=== PATIENT | male | born 1935 | race Caucasian/White ===

== ENCOUNTER → 2023-11-14 | Outpatient (REF) ==
[2023-11-14 09:43] LABS: HEMATOCRIT 31.3 % (42.0-52.0); MEAN CORPUSCULAR HEMOGLOBIN 31.5 pg (27.0-33.0); MEAN CORPUSCULAR HGB CONC 28.8 g/dl (32.0-36.5); MEAN CORPUSCULAR VOLUME 109.4 fl (80.0-96.0); PLATELET COUNT, AUTOMATED 217 10^3/uL (150-450); RED BLOOD COUNT 2.86 10^6/uL (4.30-6.10); WHITE BLOOD COUNT 6.3 10^3/uL (4.0-10.0)
[2023-11-14 10:10] LABS: CALCIUM LEVEL 8.5 MG/DL (8.3-10.6); CHOLESTEROL RISK RATIO 2.28 (<5); CREATININE FOR GFR 2.07 MG/DL (0.70-1.30); GLOMERULAR FILTRATION RATE 32.4 (>35); HDL CHOLESTEROL 34.1 MG/DL (>40); LDL CHOLESTEROL 25.3 MG/DL (<100); NON-HDL-C 43.9 MG/DL; POTASSIUM SERUM 4.7 MMOL/L (3.5-5.1); PTH INTACT 78.9 PG/ML (18.5-88.0)
[2023-11-14 10:12] LABS: TOTAL 25(OH) VITAMIN D 22.9 NG/ML (20.0-100.0)
[2023-11-14 10:14] LABS: HEMOGLOBIN A1c 6.3 % (4.0-6.0)
== END ==
LOC: SKLAB4 10:22
PROVIDERS: ATTEND Nurse Practitioner Family
DX: N18.9 Chronic kidney disease, unspecified (principal); E78.5 Hyperlipidemia, unspecified; E11.22 Type 2 diabetes mellitus with diabetic chronic kidney disease

== ENCOUNTER → 2023-11-21 | Outpatient (REF) ==
[2023-11-21 08:09] LABS: HEMATOCRIT 34.7 % (42.0-52.0); HEMOGLOBIN 9.8 g/dl (13.5-17.5); MEAN CORPUSCULAR HEMOGLOBIN 30.6 pg (27.0-33.0); MEAN CORPUSCULAR HGB CONC 28.2 g/dl (32.0-36.5); MEAN CORPUSCULAR VOLUME 108.4 fl (80.0-96.0); PLATELET COUNT, AUTOMATED 329 10^3/uL (150-450); WHITE BLOOD COUNT 7.8 10^3/uL (4.0-10.0)
[2023-11-21 08:42] LABS: CALCIUM LEVEL 8.4 MG/DL (8.3-10.6); CREATININE FOR GFR 2.12 MG/DL (0.70-1.30); GLOMERULAR FILTRATION RATE 31.5 (>35); POTASSIUM SERUM 5.4 MMOL/L (3.5-5.1)
== END ==
LOC: SKLAB4 11:15
PROVIDERS: ATTEND Nurse Practitioner Family
DX: I12.9 Hypertensive chronic kidney disease with stage 1 through stage 4 chronic kidney disease, or unspecified chronic kidney disease (principal); N18.9 Chronic kidney disease, unspecified; E11.22 Type 2 diabetes mellitus with diabetic chronic kidney disease

== ENCOUNTER → 2023-11-28 | Outpatient (REF) ==
[2023-11-28 07:09] LABS: MEAN CORPUSCULAR HGB CONC 28.1 g/dl (32.0-36.5); MEAN CORPUSCULAR VOLUME 106.7 fl (80.0-96.0); PLATELET COUNT, AUTOMATED 365 10^3/uL (150-450); WHITE BLOOD COUNT 5.4 10^3/uL (4.0-10.0)
[2023-11-28 07:26] LABS: CALCIUM LEVEL 8.6 MG/DL (8.3-10.6); CREATININE FOR GFR 2.27 MG/DL (0.70-1.30); GLOMERULAR FILTRATION RATE 29.1 (>35); POTASSIUM SERUM 4.4 MMOL/L (3.5-5.1)
[2023-11-28 07:29] LABS: FERRITIN 122.5 NG/ML (10.5-307.3)
== END ==
LOC: SKLAB4 15:47
PROVIDERS: ATTEND Nurse Practitioner Family
DX: N18.9 Chronic kidney disease, unspecified (principal); E11.22 Type 2 diabetes mellitus with diabetic chronic kidney disease; I12.9 Hypertensive chronic kidney disease with stage 1 through stage 4 chronic kidney disease, or unspecified chronic kidney disease

== ENCOUNTER → 2023-12-04 | Outpatient (REF) ==
[2023-12-04 06:48] LABS: CALCIUM LEVEL 8.4 MG/DL (8.3-10.6); CREATININE FOR GFR 2.11 MG/DL (0.70-1.30); GLOMERULAR FILTRATION RATE 31.7 (>35)
== END ==
LOC: SKLAB4 07:00
PROVIDERS: ATTEND Nurse Practitioner Family
DX: N18.9 Chronic kidney disease, unspecified (principal)

== ENCOUNTER → 2023-12-11 | Outpatient (REF) ==
[2023-12-11 08:48] LABS: CALCIUM LEVEL 8.4 MG/DL (8.3-10.6); CREATININE FOR GFR 2.02 MG/DL (0.70-1.30); GLOMERULAR FILTRATION RATE 33.4 (>35); POTASSIUM SERUM 4.2 MMOL/L (3.5-5.1)
== END ==
LOC: SKLAB4 09:00
PROVIDERS: ATTEND Nurse Practitioner Family
DX: I50.9 Heart failure, unspecified (principal)

== ENCOUNTER → 2023-12-12 | Outpatient (REF) | LOC: SKLAB4 11:10 | PROVIDERS: ATTEND Nurse Practitioner Family | DX: Z53.8 Procedure and treatment not carried out for other reasons (principal) ==

== ENCOUNTER → 2023-12-12 | Outpatient (REF) | LOC: SKLAB4 11:14 | PROVIDERS: ATTEND Nurse Practitioner Family | DX: I51.7 Cardiomegaly (principal); I70.0 Atherosclerosis of aorta; J90 Pleural effusion, not elsewhere classified ==

== ENCOUNTER → 2023-12-13 | Outpatient (REF) | payer MEDICARE, OTHER | LOC: M RAD 09:19 → EDSTATUS 10:06 | PROVIDERS: ATTEND Internal Medicine | DX: R52 Pain, unspecified (principal) ==

== ENCOUNTER → 2023-12-13 | Outpatient (REF) ==
[2023-12-13 13:44] LABS: HEMATOCRIT 31.9 % (42.0-52.0); MEAN CORPUSCULAR HEMOGLOBIN 29.5 pg (27.0-33.0); MEAN CORPUSCULAR HGB CONC 28.2 g/dl (32.0-36.5); MEAN CORPUSCULAR VOLUME 104.6 fl (80.0-96.0); PLATELET COUNT, AUTOMATED 356 10^3/uL (150-450); RED BLOOD COUNT 3.05 10^6/uL (4.30-6.10); WHITE BLOOD COUNT 6.6 10^3/uL (4.0-10.0)
[2023-12-13 14:07] LABS: ALBUMIN 2.5 G/DL (3.2-5.2); ALKALINE PHOSPHATASE 174 U/L (46-116); ALT/SGPT < 9 U/L (7.0-40); AST/SGOT 36 U/L (<34); BLOOD UREA NITROGEN 49 MG/DL (9-23); CALCIUM LEVEL 8.3 MG/DL (8.3-10.6); CARBON DIOXIDE LEVEL 27 MMOL/L (20-31); CHLORIDE LEVEL 104 MMOL/L (98-107); CREATININE FOR GFR 2.13 MG/DL (0.70-1.30); GLOMERULAR FILTRATION RATE 31.4 (>35); GLUCOSE, FASTING 169 MG/DL (74-106); POTASSIUM SERUM 4.5 MMOL/L (3.5-5.1); SODIUM LEVEL 143 MMOL/L (136-145); TOTAL PROTEIN 6.3 G/DL (5.7-8.2)
== END ==
LOC: SKLAB4 07:00
PROVIDERS: ATTEND Nurse Practitioner Family
DX: N18.9 Chronic kidney disease, unspecified (principal); D63.1 Anemia in chronic kidney disease

== ENCOUNTER → 2023-12-18 | Outpatient (REF) ==
[2023-12-18 08:25] LABS: CALCIUM LEVEL 8.8 MG/DL (8.3-10.6); CREATININE FOR GFR 2.44 MG/DL (0.70-1.30); GLOMERULAR FILTRATION RATE 26.8 (>35); POTASSIUM SERUM 4.7 MMOL/L (3.5-5.1)
== END ==
LOC: SKLAB4 07:00
PROVIDERS: ATTEND Nurse Practitioner Family
DX: N18.4 Chronic kidney disease, stage 4 (severe) (principal)

== ENCOUNTER → 2023-12-18 | Outpatient (REF) | LOC: SKLAB4 13:31 | PROVIDERS: ATTEND Nurse Practitioner Family | DX: R06.02 Shortness of breath (principal) ==

== ENCOUNTER → 2023-12-26 | Outpatient (REF) | payer MEDICARE, OTHER | LOC: M RAD 13:27 → EDSTATUS 12-27 08:39 | PROVIDERS: ATTEND Internal Medicine | DX: R09.02 Hypoxemia (principal) ==

== ENCOUNTER → 2023-12-26 | Outpatient (REF) | payer MEDICARE, OTHER ==
[2023-12-26 13:10] LABS: BASO # 0.1 10^3/uL (0.0-0.2); BASO % 0.9 % (0.0-1.0); EOS # 0.1 10^3/uL (0.0-0.5); EOS % 1.7 % (0.0-3.0); HEMATOCRIT 30.5 % (42.0-52.0); HEMOGLOBIN 8.8 g/dl (13.5-17.5); LYMPH % 18.1 % (24.0-44.0); MEAN CORPUSCULAR HEMOGLOBIN 28.9 pg (27.0-33.0); MEAN CORPUSCULAR HGB CONC 28.9 g/dl (32.0-36.5); MONO # 1.1 10^3/uL (0.0-0.8); MONO % 21.2 % (2.0-8.0); NEUTROPHILS # 3.1 10^3/uL (1.5-8.5); NEUTROPHILS % 57.5 % (36.0-66.0); PLATELET COUNT, AUTOMATED 111 10^3/uL (150-450); RED BLOOD COUNT 3.05 10^6/uL (4.30-6.10); WHITE BLOOD COUNT 5.4 10^3/uL (4.0-10.0)
[2023-12-26 13:33] LABS: ALBUMIN 2.4 G/DL (3.2-5.2); ALKALINE PHOSPHATASE 166 U/L (46-116); ALT/SGPT < 9 U/L (7.0-40); AST/SGOT 34 U/L (<34); BILIRUBIN,TOTAL 1.1 MG/DL (0.3-1.2); BLOOD UREA NITROGEN 51 MG/DL (9-23); CALCIUM LEVEL 8.5 MG/DL (8.3-10.6); CARBON DIOXIDE LEVEL 33 MMOL/L (20-31); CHLORIDE LEVEL 101 MMOL/L (98-107); CREATININE FOR GFR 2.39 MG/DL (0.70-1.30); GLOMERULAR FILTRATION RATE 27.5 (>35); GLUCOSE, FASTING 191 MG/DL (74-106); SODIUM LEVEL 142 MMOL/L (136-145); TOTAL PROTEIN 6.1 G/DL (5.7-8.2)
[2023-12-26 13:35] LABS: THYROID STIMULATING HORMONE 2.834 uIU/ML (0.55-4.78)
== END ==
LOC: SKLAB4 12:20
PROVIDERS: ATTEND Internal Medicine
DX: R09.02 Hypoxemia (principal); I48.91 Unspecified atrial fibrillation

== ENCOUNTER → 2023-12-27 | Outpatient (REF) | payer MEDICARE, OTHER | LOC: EDSTATUS 09:15 → M RAD 11:24 | PROVIDERS: ATTEND Nurse Practitioner Family | DX: Z01.89 Encounter for other specified special examinations (principal) ==

== ENCOUNTER → 2023-12-29 | Outpatient (REF) | payer MEDICARE, OTHER ==
[2023-12-29 08:30] LABS: CALCIUM LEVEL 8.7 MG/DL (8.3-10.6); CREATININE FOR GFR 2.36 MG/DL (0.70-1.30); GLOMERULAR FILTRATION RATE 27.9 (>35); POTASSIUM SERUM 4.1 MMOL/L (3.5-5.1)
== END ==
LOC: SKLAB4 07:00
PROVIDERS: ATTEND Internal Medicine
DX: I50.9 Heart failure, unspecified (principal)

== ENCOUNTER → 2024-01-03 | Outpatient (REF) | payer MEDICARE, OTHER ==
[~2024-01-03] MED LIST: ACET-683 PO; ACET1TAB55 PO; ALBU1.25 INH; ALBU2.5V10 INH; ALLO100T PO; ALLO10TA PO; ALLO300T2 PO; BENZ-18 PO; BIMA01SOL OU; BISA10SU4 PR; CALC1CAP31 PO; DEXT4TAB9 PO; EUCECRE12 TOP; EZET10TA21 PO; FERR1TAB8 PO; FLEEENE12 PR; GLUC1KIT SC; GLUCLIQ37 PO; INSU100I16 SQ; INSU100V3 SC; IPRA0.00 INH; LACT20EL PO; LANTINJ4 SC; MENT2LOZ PO; METO1TAB32 PO; MILKSUS3 PO; MUCI600T31 PO; NOVOINJ3 SC; ONDA-83 PO; PANT40TA29 PO; PROM50TA28 PO; SENN-186 PO; SODI650T PO; SPIR-10 PO; SUCR1TA PO; TOPR25TA PO; TORS100T PO; TORS40TA PO; TRAD5TAB PO; [UNRECOGNIZED DRUG - CODE] SC
[2024-01-03 12:03] LABS: BASO % 0.6 % (0.0-1.0); EOS # 0.1 10^3/uL (0.0-0.5); EOS % 1.1 % (0.0-3.0); HEMATOCRIT 32.3 % (42.0-52.0); LYMPH % 15.9 % (24.0-44.0); MEAN CORPUSCULAR HEMOGLOBIN 27.8 pg (27.0-33.0); MEAN CORPUSCULAR HGB CONC 27.9 g/dl (32.0-36.5); MEAN CORPUSCULAR VOLUME 99.7 fl (80.0-96.0); MONO # 1.4 10^3/uL (0.0-0.8); MONO % 21.8 % (2.0-8.0); NEUTROPHILS # 3.7 10^3/uL (1.5-8.5); NEUTROPHILS % 59.5 % (36.0-66.0); PLATELET COUNT, AUTOMATED 164 10^3/uL (150-450); RED BLOOD COUNT 3.24 10^6/uL (4.30-6.10); WHITE BLOOD COUNT 6.3 10^3/uL (4.0-10.0)
[2024-01-03 12:27] LABS: ALBUMIN 2.5 G/DL (3.2-5.2); CALCIUM LEVEL 8.7 MG/DL (8.3-10.6); CREATININE FOR GFR 2.5 MG/DL (0.70-1.30); GLOMERULAR FILTRATION RATE 26.1 (>35); POTASSIUM SERUM 4.2 MMOL/L (3.5-5.1); TOTAL PROTEIN 6.1 G/DL (5.7-8.2)
== END ==
LOC: SKLAB4 11:18
PROVIDERS: ATTEND Internal Medicine
DX: I50.9 Heart failure, unspecified (principal); R41.82 Altered mental status, unspecified

== ENCOUNTER → 2024-01-04 | Outpatient (REF) | payer MEDICARE, OTHER ==
[2024-01-04 13:18] LABS: CREATININE FOR GFR 2.37 MG/DL (0.70-1.30); GLOMERULAR FILTRATION RATE 27.7 (>35); POTASSIUM SERUM 4.3 MMOL/L (3.5-5.1)
== END ==
LOC: SKLAB4 07:00
PROVIDERS: ATTEND Internal Medicine
DX: N18.9 Chronic kidney disease, unspecified (principal)

== ENCOUNTER → 2024-01-15 | Outpatient (REF) | payer MEDICARE, OTHER ==
[2024-01-15 08:35] LABS: BASO % 0.5 % (0.0-1.0); EOS # 0.1 10^3/uL (0.0-0.5); EOS % 1.1 % (0.0-3.0); HEMATOCRIT 30.9 % (42.0-52.0); HEMOGLOBIN 8.8 g/dl (13.5-17.5); LYMPH # 1.1 10^3/uL (1.5-5.0); LYMPH % 14.7 % (24.0-44.0); MEAN CORPUSCULAR HEMOGLOBIN 27.7 pg (27.0-33.0); MEAN CORPUSCULAR HGB CONC 28.5 g/dl (32.0-36.5); MEAN CORPUSCULAR VOLUME 97.2 fl (80.0-96.0); MONO # 2.1 10^3/uL (0.0-0.8); MONO % 27.8 % (2.0-8.0); NEUTROPHILS # 4.2 10^3/uL (1.5-8.5); NEUTROPHILS % 55.6 % (36.0-66.0); PLATELET COUNT, AUTOMATED 295 10^3/uL (150-450); RED BLOOD COUNT 3.18 10^6/uL (4.30-6.10); WHITE BLOOD COUNT 7.5 10^3/uL (4.0-10.0)
[2024-01-15 09:12] LABS: ALBUMIN 2.4 G/DL (3.2-5.2); CALCIUM LEVEL 8.1 MG/DL (8.3-10.6); CREATININE FOR GFR 2.15 MG/DL (0.70-1.30); PHOSPHORUS LEVEL 3.9 MG/DL (2.4-5.1); PTH INTACT 111.3 PG/ML (18.5-88.0)
== END ==
LOC: SKLAB4 07:00
PROVIDERS: ATTEND Nurse Practitioner Family
DX: N18.9 Chronic kidney disease, unspecified (principal)

== ENCOUNTER → 2024-01-16 | Outpatient (REF) ==
[~2024-01-16] MED LIST changes: -ACET-683 PO; -ALBU1.25 INH; +ALBU1.25 NEB; -ALBU2.5V10 INH; -ALLO100T PO; -ALLO10TA PO; -BENZ-18 PO; -FERR1TAB8 PO; -INSU100I16 SQ; -INSU100V3 SC; -LACT20EL PO; -METO1TAB32 PO; -MILKSUS3 PO; -MUCI600T31 PO; -SPIR-10 PO; -SUCR1TA PO
== END ==
LOC: SKLAB4 07:00
PROVIDERS: ATTEND Nurse Practitioner Family
DX: N18.9 Chronic kidney disease, unspecified (principal); M10.9 Gout, unspecified; E11.22 Type 2 diabetes mellitus with diabetic chronic kidney disease

== ENCOUNTER 2024-01-18 08:58 | Inpatient (IN) | payer MEDICARE, OTHER ==
[~2024-01-18] VITALS: Ht 177.8 cm; Wt 82.3 kg
[2024-01-18] VITALS (7 sets, daily range): BP systolic 106–121; BP diastolic 55–63; TEMP 97.8–98; O2SAT 97–100
[2024-01-18 09:45] LABS: BASO % 0.2 % (0.0-1.0); EOS # 0.1 10^3/uL (0.0-0.5); EOS % 0.6 % (0.0-3.0); HEMATOCRIT 34.2 % (42.0-52.0); HEMOGLOBIN 9.3 g/dl (13.5-17.5); LYMPH # 0.4 10^3/uL (1.5-5.0); LYMPH % 1.8 % (24.0-44.0); MEAN CORPUSCULAR HEMOGLOBIN 26.6 pg (27.0-33.0); MEAN CORPUSCULAR HGB CONC 27.2 g/dl (32.0-36.5); MEAN CORPUSCULAR VOLUME 97.7 fl (80.0-96.0); MONO % 11.8 % (2.0-8.0); NEUTROPHILS # 18.3 10^3/uL (1.5-8.5); NEUTROPHILS % 84.5 % (36.0-66.0); PLATELET COUNT, AUTOMATED 316 10^3/uL (150-450); WHITE BLOOD COUNT 21.7 10^3/uL (4.0-10.0)
[2024-01-18 09:57] LABS: ALBUMIN 2.7 G/DL (3.2-5.2); BILIRUBIN,DIRECT 0.8 MG/DL (<0.4); BILIRUBIN,TOTAL 1.7 MG/DL (0.3-1.2); CALCIUM LEVEL 8.6 MG/DL (8.3-10.6); CK-MB VALUE MASS 3.6 NG/ML (<3.6); CREATININE FOR GFR 2.4 MG/DL (0.70-1.30); GLOMERULAR FILTRATION RATE 27.3 (>35); POTASSIUM SERUM 4.3 MMOL/L (3.5-5.1); TOTAL PROTEIN 6.1 G/DL (5.7-8.2)
[2024-01-18 10:05] LABS: MONO # 2.6 10^3/uL (0.0-0.8)
[2024-01-18 10:14] LABS: MB/CK RELATIVE INDEX 4.93 (< OR =4)
[2024-01-18 10:59] LABS: CK-MB VALUE MASS 3.9 NG/ML (<3.6); MB/CK RELATIVE INDEX 5.65 (< OR =4)
[2024-01-18 12:01] LABS: CK-MB VALUE MASS 4.1 NG/ML (<3.6)
[2024-01-18 12:07] LABS: C REACTIVE PROTEIN QUANTITATIV 9.8 MG/DL (<1.0)
[2024-01-18 12:11] LABS: FREE T4 1.21 NG/DL (0.89-1.76); THYROID STIMULATING HORMONE 4.951 uIU/ML (0.55-4.78)
[2024-01-18 12:13] LABS: MB/CK RELATIVE INDEX 5.94 (< OR =4)
[2024-01-18 12:14] LABS: INR 1.46; PROTHROMBIN TIME 17.3 SECONDS (12.5-14.5)
[2024-01-18 12:20] LABS: PROCALCITONIN 2.02 ng/ml
[2024-01-18 12:32] LABS: VENOUS BASE EXCESS 7.7 (-2.0-2.0); VENOUS HCO3 33.8 MMOL/L (23.0-27.0); VENOUS O2 SATURATION 75.2 % (60.0-80.0); VENOUS PARTIAL PRESSURE CO2 55.2 mmHg (38.0-50.0); VENOUS PH 7.405 UNITS (7.330-7.430); VENOUS STANDARD HCO3 31.1 MMOL/L; VENOUS TOTAL CO2 35.5 MMOL/L (24.0-28.0)
[2024-01-18] MEDS: CEFEPIME HCL 1 GM in D5W MINI-BAG PLUS 50 ML IV ONE (12:39)
[2024-01-18] MEDS: AZITHROMYCIN INJ 500 MG, VIAL MATE ADAPTER 1 EACH in NS 250 ML IV ONE (13:24)
[2024-01-18] MEDS ORDERED: FLEEENE12 PR (13:38)
[2024-01-18] MEDS ORDERED: TORS40TA PO (13:38)
[2024-01-18] MEDS ORDERED: ACET1TAB55 PO (13:38)
[2024-01-18] MEDS ORDERED: NOVOINJ3 SC (13:38)
[2024-01-18] MEDS ORDERED: DEXT4TAB9 PO (13:38)
[2024-01-18] MEDS ORDERED: GLUC1KIT SC (13:38)
[2024-01-18] MEDS ORDERED: ALBU1.25 NEB (13:38)
[2024-01-18] MEDS ORDERED: SODI650T PO (13:38)
[2024-01-18] MEDS ORDERED: BISA10SU4 PR (13:38)
[2024-01-18] MEDS ORDERED: IPRA0.00 INH (13:38)
[2024-01-18] MEDS: IPRATROPIUM 0.5MG/ALBUTEROL 2.5MG INH SOL UD 3ML (DUONEB) NEB ONE (13:45)
[2024-01-18] MEDS ORDERED: [UNRECOGNIZED DRUG - CODE] SC (13:51)
[2024-01-18] MEDS ORDERED: ALLO300T2 PO (13:51)
[2024-01-18] MEDS ORDERED: LANTINJ4 SC (13:51)
[2024-01-18] MEDS ORDERED: PROM50TA28 PO (13:51)
[2024-01-18] MEDS ORDERED: SENN-186 PO (13:51)
[2024-01-18] MEDS ORDERED: CALC1CAP31 PO (13:51)
[2024-01-18] MEDS ORDERED: EZET10TA21 PO (13:51)
[2024-01-18] MEDS ORDERED: ONDA-83 PO (13:51)
[2024-01-18] MEDS ORDERED: TRAD5TAB PO (13:51)
[2024-01-18] MEDS ORDERED: PANT40TA29 PO (13:51)
[2024-01-18] MEDS ORDERED: GLUCLIQ37 PO (13:51)
[2024-01-18] MEDS ORDERED: EUCECRE12 TOP (13:51)
[2024-01-18] MEDS ORDERED: BIMA01SOL OU (13:51)
[2024-01-18] MEDS ORDERED: MENT2LOZ PO (13:51)
[2024-01-18] MEDS ORDERED: HOME MED LIST COMPLETE! XX SCH (13:55)
[2024-01-18] MEDS ORDERED: NS 1,000 ML IV ONE (14:30)
[2024-01-18] MEDS: NS 500 ML IV ONE (14:36)
[2024-01-18] MEDS ORDERED: ONDANSETRON 4MG TAB PO PRN (16:10)
[2024-01-18] MEDS ORDERED: GLUCOSE 4 GM CHEW PO PRN (16:10)
[2024-01-18] MEDS ORDERED: ALBUTEROL SULFATE 2.5MG/0.5ML INH NEB SOLN NEB PRN (16:10)
[2024-01-18] MEDS ORDERED: FLEET ENEMA PR PRN (16:10)
[2024-01-18] MEDS ORDERED: BISACODYL 10MG SUPP PR PRN (16:10)
[2024-01-18] MEDS ORDERED: GLUCAGON INJ 1MG VIAL SC PRN (16:10)
[2024-01-18] MEDS: FUROSEMIDE 40MG/4ML VIAL IV ONE (18:01)
[2024-01-18] MEDS: cefTRIAXone SOD 1 GM in D5W MINI-BAG PLUS 50 ML IV SCH (21:34)
[2024-01-18] MEDS: LATANOPROST 0.005% OPHTH SOLN 2.5 ML OU SCH (21:34)
[2024-01-18] MEDS: SODIUM BICARBONATE 325 MG TAB PO SCH (21:35)
[2024-01-18] MEDS: HEPARIN SOD (PORCINE) 5000UNITS/ML 1ML VIAL/SYRINGE SC SCH (21:35)
[2024-01-18] MEDS: EZETIMIBE 10MG TABLET (ZETIA) PO SCH (21:35)
[2024-01-18] MEDS: LEVEMIR (INSULIN DETEMIR) 1 UNITS/0.01ML SC SCH (21:41)
[2024-01-18] MEDS: ACETAMINOPHEN 325 MG TAB PO SCH (21:41)
[2024-01-18] MEDS: SENNA 8.6 MG TAB (SENOKOT) PO SCH (21:41)
[2024-01-19] VITALS (25 sets, daily range): BP systolic 90–123; BP diastolic 52–72; TEMP 96.3–97.5; O2SAT 94–100
[2024-01-19 05:00] LABS: BASO % 0.1 % (0.0-1.0); HEMATOCRIT 31.9 % (42.0-52.0); HEMOGLOBIN 8.9 g/dl (13.5-17.5); LYMPH # 0.5 10^3/uL (1.5-5.0); LYMPH % 3.7 % (24.0-44.0); MEAN CORPUSCULAR HGB CONC 27.9 g/dl (32.0-36.5); MEAN CORPUSCULAR VOLUME 96.7 fl (80.0-96.0); MONO # 1.2 10^3/uL (0.0-0.8); MONO % 8.3 % (2.0-8.0); NEUTROPHILS # 12.5 10^3/uL (1.5-8.5); NEUTROPHILS % 87.1 % (36.0-66.0); PLATELET COUNT, AUTOMATED 338 10^3/uL (150-450); WHITE BLOOD COUNT 14.4 10^3/uL (4.0-10.0)
[2024-01-19 05:23] LABS: ALBUMIN 2.5 G/DL (3.2-5.2); BILIRUBIN,TOTAL 1.1 MG/DL (0.3-1.2); CALCIUM LEVEL 8.2 MG/DL (8.3-10.6); CREATININE FOR GFR 2.8 MG/DL (0.70-1.30); GLOMERULAR FILTRATION RATE 22.9 (>35); MAGNESIUM LEVEL 2.2 MG/DL (1.8-2.4); PHOSPHORUS LEVEL 6.2 MG/DL (2.4-5.1); POTASSIUM SERUM 5.1 MMOL/L (3.5-5.1); TOTAL PROTEIN 6.1 G/DL (5.7-8.2)
[2024-01-19] MEDS: CALCITRIOL 0.25 MCG CAP (S0169) PO SCH (08:55)
[2024-01-19] MEDS: PANTOPRAZOLE 40MG TAB (PROTONIX) PO SCH (08:55)
[2024-01-19] MEDS: AZITHROMYCIN 250MG TABLET PO SCH (08:56)
[2024-01-19] MEDS: allopurinoL 300 MG TAB PO SCH (08:56)
[2024-01-19] MEDS ORDERED: GLUCOSE 4 GM CHEW PO PRN (10:20)
[2024-01-19] MEDS ORDERED: DEXTROSE 50% 50ML SYRINGE IV PRN (10:20)
[2024-01-19] MEDS ORDERED: GLUCAGON INJ 1MG VIAL SC PRN (10:20)
[2024-01-19] MEDS: FUROSEMIDE injection 250 MG in D5W 225 ML IV SCH (10:25)
[2024-01-19] MEDS: INSULIN LISPRO (NovoLOG) PER UNIT SC SCH ×2 (11:51→21:00)
[2024-01-19 18:32] LABS: CALCIUM LEVEL 8.2 MG/DL (8.3-10.6); CREATININE FOR GFR 3.06 MG/DL (0.70-1.30); GLOMERULAR FILTRATION RATE 20.7 (>35); MAGNESIUM LEVEL 2.2 MG/DL (1.8-2.4); POTASSIUM SERUM 5.2 MMOL/L (3.5-5.1)
[2024-01-20] VITALS (26 sets, daily range): BP systolic 93–120; BP diastolic 55–75; TEMP 96.8–97.8; O2SAT 79–100
[2024-01-20 05:13] LABS: BLOOD UREA NITROGEN 83 MG/DL (9-23); CALCIUM LEVEL 7.7 MG/DL (8.3-10.6); CARBON DIOXIDE LEVEL 34 MMOL/L (20-31); CHLORIDE LEVEL 97 MMOL/L (98-107); CREATININE FOR GFR 3.13 MG/DL (0.70-1.30); GLOMERULAR FILTRATION RATE 20.1 (>35); GLUCOSE, FASTING 182 MG/DL (74-106); MAGNESIUM LEVEL 2.3 MG/DL (1.8-2.4); PHOSPHORUS LEVEL 6.1 MG/DL (2.4-5.1); POTASSIUM SERUM 5.3 MMOL/L (3.5-5.1); SODIUM LEVEL 137 MMOL/L (136-145)
[2024-01-20] MEDS ORDERED: SODIUM CHLORIDE 0.9% 1000ML IV PRN (08:45)
[2024-01-20] MEDS ORDERED: HEPARIN 1,000UNITS/ML 10ML VIAL (FOR RADIOLOGY & DIALYSIS ONLY) IV PRN (08:45)
[2024-01-20 09:08] LABS: HEPATITIS B SURFACE ANTIBODY POSITIVE (POSITIVE)
[2024-01-20 09:20] LABS: HEPATITIS B SURFACE ANTIGEN NEGATIVE (NEGATIVE)
[2024-01-20 09:40] LABS: HEPATITIS B CORE ANTIBODY IGM NEGATIVE (NEGATIVE)
[2024-01-20 09:41] LABS: HEPATITIS C VIRUS ABY INDEX < 0.02 INDEX (<0.8)
[2024-01-20] MEDS: HEPARIN 1,000UNITS/ML 10ML VIAL (FOR RADIOLOGY & DIALYSIS ONLY) XX SCH (15:25)
[2024-01-20] MEDS: METOPROLOL 5 MG/5 ML VIAL IV SCH (15:39)
[2024-01-20 19:16] LABS: CALCIUM LEVEL 7.9 MG/DL (8.3-10.6); CREATININE FOR GFR 2.45 MG/DL (0.70-1.30); GLOMERULAR FILTRATION RATE 26.7 (>35); MAGNESIUM LEVEL 2.1 MG/DL (1.8-2.4); PHOSPHORUS LEVEL 4.7 MG/DL (2.4-5.1); POTASSIUM SERUM 4.7 MMOL/L (3.5-5.1)
[2024-01-20] MEDS: D5W/LR 1,000 ML IV SCH (19:46)
[2024-01-21] VITALS (15 sets, daily range): BP systolic 93–125; BP diastolic 53–66; TEMP 97.1–98; O2SAT 92–100
[2024-01-21] MEDS: INSULIN LISPRO (NovoLOG) PER UNIT SC SCH
[2024-01-21 05:40] LABS: CALCIUM LEVEL 7.8 MG/DL (8.3-10.6); CREATININE FOR GFR 2.64 MG/DL (0.70-1.30); GLOMERULAR FILTRATION RATE 24.5 (>35); MAGNESIUM LEVEL 2.2 MG/DL (1.8-2.4); PHOSPHORUS LEVEL 5.3 MG/DL (2.4-5.1); POTASSIUM SERUM 4.8 MMOL/L (3.5-5.1)
[2024-01-21] MEDS: LEVEMIR (INSULIN DETEMIR) 1 UNITS/0.01ML SC SCH (09:00)
[2024-01-21] MEDS: PANTOPRAZOLE 40MG VIAL IV SCH (21:55)
[2024-01-21 22:13] LABS: BASO % 0.1 % (0.0-1.0); HEMATOCRIT 34.1 % (42.0-52.0); HEMOGLOBIN 9.7 g/dl (13.5-17.5); LYMPH # 0.8 10^3/uL (1.5-5.0); LYMPH % 9.7 % (24.0-44.0); MEAN CORPUSCULAR HEMOGLOBIN 26.8 pg (27.0-33.0); MEAN CORPUSCULAR HGB CONC 28.4 g/dl (32.0-36.5); MEAN CORPUSCULAR VOLUME 94.2 fl (80.0-96.0); MONO # 1.6 10^3/uL (0.0-0.8); MONO % 18.3 % (2.0-8.0); NEUTROPHILS # 6.1 10^3/uL (1.5-8.5); NEUTROPHILS % 71.3 % (36.0-66.0); PLATELET COUNT, AUTOMATED 394 10^3/uL (150-450); RED BLOOD COUNT 3.62 10^6/uL (4.30-6.10); WHITE BLOOD COUNT 8.6 10^3/uL (4.0-10.0)
[2024-01-21 22:39] LABS: ALBUMIN 2.5 G/DL (3.2-5.2); BILIRUBIN,TOTAL 1.1 MG/DL (0.3-1.2); CALCIUM LEVEL 7.9 MG/DL (8.3-10.6); CREATININE FOR GFR 2.85 MG/DL (0.70-1.30); GLOMERULAR FILTRATION RATE 22.4 (>35); MAGNESIUM LEVEL 2.1 MG/DL (1.8-2.4); PHOSPHORUS LEVEL 6.5 MG/DL (2.4-5.1); POTASSIUM SERUM 5.5 MMOL/L (3.5-5.1); TOTAL PROTEIN 5.9 G/DL (5.7-8.2)
[2024-01-22 03:36] VITALS: BP 95/57; TEMP 97; O2SAT 94
[2024-01-22] MEDS ORDERED: SODIUM CHLORIDE 0.9% 1000ML IV PRN (06:00)
[2024-01-22] MEDS ORDERED: HEPARIN 1,000UNITS/ML 10ML VIAL (FOR RADIOLOGY & DIALYSIS ONLY) IV PRN (06:00)
[2024-01-22 07:43] VITALS: BP 102/65; TEMP 96.9; O2SAT 98
[2024-01-22 11:43] VITALS: BP 108/65; TEMP 97.3; O2SAT 98
[2024-01-22] MEDS: HEPARIN 1,000UNITS/ML 10ML VIAL (FOR RADIOLOGY & DIALYSIS ONLY) XX SCH (15:51)
[2024-01-22] MEDS: DARBEPOETIN 100MCG/0.5ML *NON-DIALYSIS* SYRINGE SC SCH (17:11)
[2024-01-22 17:16] VITALS: BP 110/72; TEMP 97.1; O2SAT 98
[2024-01-22 19:18] VITALS: BP 104/67; TEMP 97; O2SAT 97
[2024-01-22 23:00] VITALS: BP 100/69; TEMP 97; O2SAT 95
[2024-01-23 03:48] VITALS: BP 109/59; TEMP 97.2; O2SAT 95
[2024-01-23 05:57] LABS: BASO % 0.2 % (0.0-1.0); EOS # 0.1 10^3/uL (0.0-0.5); EOS % 1.1 % (0.0-3.0); HEMATOCRIT 35.3 % (42.0-52.0); HEMOGLOBIN 9.9 g/dl (13.5-17.5); LYMPH # 0.8 10^3/uL (1.5-5.0); LYMPH % 11.9 % (24.0-44.0); MEAN CORPUSCULAR HEMOGLOBIN 26.4 pg (27.0-33.0); MEAN CORPUSCULAR VOLUME 94.1 fl (80.0-96.0); MONO # 1.3 10^3/uL (0.0-0.8); MONO % 18.8 % (2.0-8.0); NEUTROPHILS # 4.5 10^3/uL (1.5-8.5); NEUTROPHILS % 67.1 % (36.0-66.0); PLATELET COUNT, AUTOMATED 310 10^3/uL (150-450); RED BLOOD COUNT 3.75 10^6/uL (4.30-6.10); WHITE BLOOD COUNT 6.7 10^3/uL (4.0-10.0)
[2024-01-23 06:20] LABS: ALBUMIN 2.5 G/DL (3.2-5.2); BILIRUBIN,TOTAL 0.9 MG/DL (0.3-1.2); CREATININE FOR GFR 2.32 MG/DL (0.70-1.30); GLOMERULAR FILTRATION RATE 28.4 (>35); POTASSIUM SERUM 4.8 MMOL/L (3.5-5.1); TOTAL PROTEIN 5.9 G/DL (5.7-8.2)
[2024-01-23 07:44] VITALS: BP 117/62; TEMP 96.8; O2SAT 98
[2024-01-23] MEDS ORDERED: HEPARIN 1,000UNITS/ML 10ML VIAL (FOR RADIOLOGY & DIALYSIS ONLY) IV PRN (08:10)
[2024-01-23] MEDS ORDERED: SODIUM CHLORIDE 0.9% 1000ML IV PRN (08:10)
[2024-01-23] MEDS: guaiFENesin ER TABLET 600 MG TAB PO SCH (09:00)
[2024-01-23] MEDS: HEPARIN 1,000UNITS/ML 10ML VIAL (FOR RADIOLOGY & DIALYSIS ONLY) XX SCH (11:36)
[2024-01-23 12:35] VITALS: BP 110/70; TEMP 97.1; O2SAT 97
[2024-01-23 15:49] VITALS: BP 112/55; TEMP 97.2; O2SAT 95
[2024-01-23 20:29] VITALS: BP 95/53; TEMP 97.5; O2SAT 96
[2024-01-23] MEDS: METOPROLOL TART 12.5 MG PER 1/2 TAB PO SCH (20:31)
[2024-01-23] MEDS: INSULIN LISPRO (NovoLOG) PER UNIT SC SCH (21:00)
[2024-01-23 21:26] VITALS: O2SAT 93
[2024-01-24] VITALS (9 sets, daily range): BP systolic 90–144; BP diastolic 51–62; TEMP 97.1–98.1; O2SAT 90–98
[2024-01-24] MEDS: guaiFENesin 200 MG TAB PO SCH (09:12)
[2024-01-24] MEDS: INSULIN LISPRO (NovoLOG) PER UNIT SC SCH (09:12)
[2024-01-24] MEDS ORDERED: VARIBAR NECTAR 40% w/v 240ML SUSP BTL As Ordered ONE (11:09)
[2024-01-24] MEDS ORDERED: VARIBAR PUDDING 40% w/v 230ML TUBE As Ordered ONE (11:09)
[2024-01-24] MEDS ORDERED: E-Z-PAQUE 96% w/w SUSP 176GM BTL As Ordered ONE (11:10)
[2024-01-24] MEDS ORDERED: BARIUM SULFATE 700 MG TABLET (E-Z-DISK) As Ordered ONE (11:10)
[2024-01-25] VITALS (8 sets, daily range): BP systolic 100–119; BP diastolic 57–67; TEMP 97.1–98.1; O2SAT 91–99
[2024-01-25 08:17] LABS: BASO % 0.3 % (0.0-1.0); EOS # 0.1 10^3/uL (0.0-0.5); EOS % 1.2 % (0.0-3.0); HEMATOCRIT 36.4 % (42.0-52.0); LYMPH % 10.9 % (24.0-44.0); MEAN CORPUSCULAR HEMOGLOBIN 25.9 pg (27.0-33.0); MEAN CORPUSCULAR HGB CONC 27.5 g/dl (32.0-36.5); MEAN CORPUSCULAR VOLUME 94.3 fl (80.0-96.0); MONO # 2.3 10^3/uL (0.0-0.8); MONO % 24.5 % (2.0-8.0); NEUTROPHILS # 5.8 10^3/uL (1.5-8.5); PLATELET COUNT, AUTOMATED 252 10^3/uL (150-450); RED BLOOD COUNT 3.86 10^6/uL (4.30-6.10); WHITE BLOOD COUNT 9.4 10^3/uL (4.0-10.0)
[2024-01-25 08:50] LABS: ALBUMIN 2.8 G/DL (3.2-5.2); BILIRUBIN,TOTAL 0.8 MG/DL (0.3-1.2); CALCIUM LEVEL 8.3 MG/DL (8.3-10.6); CREATININE FOR GFR 2.35 MG/DL (0.70-1.30); POTASSIUM SERUM 4.3 MMOL/L (3.5-5.1); TOTAL PROTEIN 6.4 G/DL (5.7-8.2)
[2024-01-25] MEDS: LEVEMIR (INSULIN DETEMIR) 1 UNITS/0.01ML SC SCH (13:17)
[2024-01-25] MEDS ORDERED: ACETAMINOPHEN TAB 650MG DOSE (2X325MG) PO PRN (16:50)
[2024-01-26] VITALS (7 sets, daily range): BP systolic 100–143; BP diastolic 55–93; TEMP 97.6–98.8; O2SAT 95–98
[2024-01-26 06:01] LABS: BASO % 0.3 % (0.0-1.0); EOS # 0.1 10^3/uL (0.0-0.5); EOS % 0.9 % (0.0-3.0); HEMATOCRIT 37.8 % (42.0-52.0); HEMOGLOBIN 10.6 g/dl (13.5-17.5); LYMPH # 0.7 10^3/uL (1.5-5.0); LYMPH % 10.1 % (24.0-44.0); MEAN CORPUSCULAR HEMOGLOBIN 26.5 pg (27.0-33.0); MEAN CORPUSCULAR VOLUME 94.5 fl (80.0-96.0); MONO % 31.2 % (2.0-8.0); NEUTROPHILS # 3.7 10^3/uL (1.5-8.5); NEUTROPHILS % 56.9 % (36.0-66.0); PLATELET COUNT, AUTOMATED 181 10^3/uL (150-450); WHITE BLOOD COUNT 6.5 10^3/uL (4.0-10.0)
[2024-01-26 06:32] LABS: ALBUMIN 2.8 G/DL (3.2-5.2); BILIRUBIN,TOTAL 0.7 MG/DL (0.3-1.2); CREATININE FOR GFR 2.3 MG/DL (0.70-1.30); GLOMERULAR FILTRATION RATE 28.7 (>35); PHOSPHORUS LEVEL 3.8 MG/DL (2.4-5.1); POTASSIUM SERUM 5.2 MMOL/L (3.5-5.1); TOTAL PROTEIN 6.3 G/DL (5.7-8.2)
[2024-01-26] MEDS: PATIROMER SORBITEX CALCIUM 8.4 GM POWDER PACKET (VELTASSA) PO ONE (09:11)
[2024-01-26] MEDS: TORSEMIDE (DEMADEX) 50 MG PER 1/2 TAB PO SCH (09:12)
[2024-01-26] MEDS: metOLazone 2.5 MG TAB PO SCH (09:12)
[2024-01-27 03:20] VITALS: BP 104/52; TEMP 97.2; O2SAT 96
[2024-01-27 05:07] LABS: BASO % 0.4 % (0.0-1.0); EOS % 0.2 % (0.0-3.0); HEMATOCRIT 36.3 % (42.0-52.0); HEMOGLOBIN 10.3 g/dl (13.5-17.5); LYMPH # 0.7 10^3/uL (1.5-5.0); LYMPH % 14.8 % (24.0-44.0); MEAN CORPUSCULAR HEMOGLOBIN 26.1 pg (27.0-33.0); MEAN CORPUSCULAR HGB CONC 28.4 g/dl (32.0-36.5); MEAN CORPUSCULAR VOLUME 92.1 fl (80.0-96.0); MONO # 1.7 10^3/uL (0.0-0.8); NEUTROPHILS # 2.2 10^3/uL (1.5-8.5); NEUTROPHILS % 47.5 % (36.0-66.0); PLATELET COUNT, AUTOMATED 173 10^3/uL (150-450); RED BLOOD COUNT 3.94 10^6/uL (4.30-6.10); WHITE BLOOD COUNT 4.7 10^3/uL (4.0-10.0)
[2024-01-27 05:52] LABS: ALBUMIN 2.7 G/DL (3.2-5.2); CALCIUM LEVEL 8.5 MG/DL (8.3-10.6); CREATININE FOR GFR 2.41 MG/DL (0.70-1.30); GLOMERULAR FILTRATION RATE 27.2 (>35); MAGNESIUM LEVEL 1.9 MG/DL (1.8-2.4); POTASSIUM SERUM 4.9 MMOL/L (3.5-5.1); TOTAL PROTEIN 5.9 G/DL (5.7-8.2)
[2024-01-27 07:58] VITALS: BP 142/68; TEMP 97.3; O2SAT 96
[2024-01-27 12:00] VITALS: BP 99/64; TEMP 97.1; O2SAT 97
[2024-01-27 16:16] VITALS: BP 100/61; TEMP 97.6; O2SAT 99
[2024-01-27 19:43] VITALS: BP 104/72; TEMP 97.2; O2SAT 97
[2024-01-27] MEDS: TORSEMIDE (DEMADEX) 50 MG PER 1/2 TAB PO SCH (20:16)
[2024-01-27 23:06] VITALS: BP 108/62; TEMP 97; O2SAT 98
[2024-01-28 03:12] VITALS: BP 113/66; TEMP 97.2; O2SAT 98
[2024-01-28 04:51] LABS: BASO % 0.4 % (0.0-1.0); EOS # 0.1 10^3/uL (0.0-0.5); EOS % 1.2 % (0.0-3.0); HEMATOCRIT 33.9 % (42.0-52.0); HEMOGLOBIN 9.8 g/dl (13.5-17.5); LYMPH # 0.8 10^3/uL (1.5-5.0); LYMPH % 16.3 % (24.0-44.0); MEAN CORPUSCULAR HEMOGLOBIN 26.6 pg (27.0-33.0); MEAN CORPUSCULAR HGB CONC 28.9 g/dl (32.0-36.5); MEAN CORPUSCULAR VOLUME 91.9 fl (80.0-96.0); MONO # 1.9 10^3/uL (0.0-0.8); MONO % 38.1 % (2.0-8.0); NEUTROPHILS # 2.1 10^3/uL (1.5-8.5); NEUTROPHILS % 42.2 % (36.0-66.0); PLATELET COUNT, AUTOMATED 146 10^3/uL (150-450); RED BLOOD COUNT 3.69 10^6/uL (4.30-6.10); WHITE BLOOD COUNT 4.9 10^3/uL (4.0-10.0)
[2024-01-28 05:17] LABS: ALBUMIN 2.6 G/DL (3.2-5.2); CALCIUM LEVEL 8.3 MG/DL (8.3-10.6); CREATININE FOR GFR 2.48 MG/DL (0.70-1.30); GLOMERULAR FILTRATION RATE 26.3 (>35); MAGNESIUM LEVEL 1.8 MG/DL (1.8-2.4); POTASSIUM SERUM 4.3 MMOL/L (3.5-5.1); TOTAL PROTEIN 5.7 G/DL (5.7-8.2)
[2024-01-28 07:31] VITALS: BP 147/59; TEMP 97.3; O2SAT 96
[2024-01-28 12:00] VITALS: BP 124/59; TEMP 97.4; O2SAT 100
[2024-01-28 16:00] VITALS: BP 106/56; TEMP 97.8; O2SAT 98
[2024-01-28 19:25] VITALS: BP 109/60; TEMP 97.5; O2SAT 97
[2024-01-29 03:56] VITALS: BP 116/58; TEMP 97.4; O2SAT 95
[2024-01-29 05:47] LABS: BASO % 0.2 % (0.0-1.0); EOS # 0.1 10^3/uL (0.0-0.5); EOS % 1.4 % (0.0-3.0); HEMATOCRIT 32.4 % (42.0-52.0); HEMOGLOBIN 9.2 g/dl (13.5-17.5); LYMPH # 0.8 10^3/uL (1.5-5.0); LYMPH % 17.9 % (24.0-44.0); MEAN CORPUSCULAR HGB CONC 28.4 g/dl (32.0-36.5); MEAN CORPUSCULAR VOLUME 91.5 fl (80.0-96.0); MONO # 1.5 10^3/uL (0.0-0.8); MONO % 34.2 % (2.0-8.0); NEUTROPHILS # 1.9 10^3/uL (1.5-8.5); NEUTROPHILS % 45.1 % (36.0-66.0); PLATELET COUNT, AUTOMATED 141 10^3/uL (150-450); RED BLOOD COUNT 3.54 10^6/uL (4.30-6.10); WHITE BLOOD COUNT 4.3 10^3/uL (4.0-10.0)
[2024-01-29 06:15] LABS: ALBUMIN 2.4 G/DL (3.2-5.2); CALCIUM LEVEL 8.2 MG/DL (8.3-10.6); CREATININE FOR GFR 2.4 MG/DL (0.70-1.30); GLOMERULAR FILTRATION RATE 27.3 (>35); MAGNESIUM LEVEL 1.8 MG/DL (1.8-2.4); POTASSIUM SERUM 4.1 MMOL/L (3.5-5.1); TOTAL PROTEIN 5.4 G/DL (5.7-8.2)
[2024-01-29 08:22] VITALS: BP 112/61; TEMP 98; O2SAT 94
[2024-01-29 13:10] VITALS: BP 99/55; TEMP 97.2; O2SAT 100
[2024-01-29 15:50] VITALS: BP 99/57; TEMP 97.3; O2SAT 99
[2024-01-29 18:49] LABS: CALCIUM LEVEL 8.1 MG/DL (8.3-10.6); CREATININE FOR GFR 2.4 MG/DL (0.70-1.30); GLOMERULAR FILTRATION RATE 27.3 (>35); MAGNESIUM LEVEL 1.7 MG/DL (1.8-2.4); POTASSIUM SERUM 4.2 MMOL/L (3.5-5.1)
[2024-01-29] MEDS: MAG SULF 1GM/100ML (MAG RUN) 1 GM in IV 1 EA IV SCH (19:58)
[2024-01-29 20:38] VITALS: BP_SYST 100; BP_SYST 101; BP_DIAS 58; TEMP 97.7; O2SAT 96
[2024-01-30 00:05] VITALS: BP 101/58; TEMP 97.3; O2SAT 93
[2024-01-30 04:05] VITALS: BP 104/61; TEMP 97.3; O2SAT 96
[2024-01-30 07:02] LABS: BASO % 0.4 % (0.0-1.0); EOS % 0.9 % (0.0-3.0); HEMOGLOBIN 9.3 g/dl (13.5-17.5); LYMPH % 20.9 % (24.0-44.0); MEAN CORPUSCULAR HEMOGLOBIN 26.8 pg (27.0-33.0); MEAN CORPUSCULAR HGB CONC 29.1 g/dl (32.0-36.5); MEAN CORPUSCULAR VOLUME 92.2 fl (80.0-96.0); MONO # 1.4 10^3/uL (0.0-0.8); MONO % 29.9 % (2.0-8.0); NEUTROPHILS # 2.2 10^3/uL (1.5-8.5); NEUTROPHILS % 47.2 % (36.0-66.0); PLATELET COUNT, AUTOMATED 145 10^3/uL (150-450); RED BLOOD COUNT 3.47 10^6/uL (4.30-6.10); WHITE BLOOD COUNT 4.6 10^3/uL (4.0-10.0)
[2024-01-30 07:22] LABS: ALBUMIN 2.6 G/DL (3.2-5.2); BILIRUBIN,TOTAL 1.1 MG/DL (0.3-1.2); CALCIUM LEVEL 8.5 MG/DL (8.3-10.6); CREATININE FOR GFR 2.35 MG/DL (0.70-1.30); MAGNESIUM LEVEL 2.1 MG/DL (1.8-2.4); POTASSIUM SERUM 3.9 MMOL/L (3.5-5.1); TOTAL PROTEIN 5.6 G/DL (5.7-8.2)
[2024-01-30 08:30] VITALS: BP 106/60; TEMP 97.3; O2SAT 93
[2024-01-30 12:00] VITALS: BP 107/60; TEMP 97.7; O2SAT 97
[2024-01-30 16:00] VITALS: BP 106/61; TEMP 97; O2SAT 97
[2024-01-30 20:49] VITALS: BP 98/81; TEMP 97.3; O2SAT 97
[2024-01-30] MEDS: LEVEMIR (INSULIN DETEMIR) 1 UNITS/0.01ML SC SCH (21:28)
[2024-01-31 00:20] VITALS: BP 106/61; TEMP 97.2; O2SAT 97
[2024-01-31] MEDS: METOPROLOL TART 12.5 MG PER 1/2 TAB PO ONE (00:34)
[2024-01-31 04:11] VITALS: BP 101/61; TEMP 97.5; O2SAT 94
[2024-01-31 08:00] VITALS: BP 105/61; TEMP 97.7; O2SAT 89
[2024-01-31 08:23] LABS: BASO % 0.3 % (0.0-1.0); EOS % 0.3 % (0.0-3.0); HEMOGLOBIN 9.5 g/dl (13.5-17.5); LYMPH # 0.9 10^3/uL (1.5-5.0); LYMPH % 13.1 % (24.0-44.0); MEAN CORPUSCULAR HEMOGLOBIN 26.5 pg (27.0-33.0); MEAN CORPUSCULAR HGB CONC 28.8 g/dl (32.0-36.5); MEAN CORPUSCULAR VOLUME 92.2 fl (80.0-96.0); MONO # 1.8 10^3/uL (0.0-0.8); MONO % 26.6 % (2.0-8.0); NEUTROPHILS # 3.9 10^3/uL (1.5-8.5); NEUTROPHILS % 59.1 % (36.0-66.0); PLATELET COUNT, AUTOMATED 168 10^3/uL (150-450); RED BLOOD COUNT 3.58 10^6/uL (4.30-6.10); WHITE BLOOD COUNT 6.7 10^3/uL (4.0-10.0)
[2024-01-31 08:53] LABS: ALBUMIN 2.5 G/DL (3.2-5.2); CALCIUM LEVEL 8.3 MG/DL (8.3-10.6); CREATININE FOR GFR 2.2 MG/DL (0.70-1.30); GLOMERULAR FILTRATION RATE 30.2 (>35); MAGNESIUM LEVEL 1.8 MG/DL (1.8-2.4); POTASSIUM SERUM 3.8 MMOL/L (3.5-5.1); TOTAL PROTEIN 5.8 G/DL (5.7-8.2)
[2024-01-31 08:59] VITALS: BP 106/60
[2024-01-31] MEDS: TORSEMIDE (DEMADEX) 50 MG PER 1/2 TAB PO SCH (08:59)
[2024-01-31] MEDS ORDERED: TOPR25TA PO (10:32)
[2024-01-31] MEDS ORDERED: TORS100T PO (10:32)
[2024-01-31] MEDS ORDERED: LANTINJ4 SC (10:32)
== END 2024-01-31 11:54 | DRG 871 ==
LOC: M ED 08:58 → M ED INP 15:25 → M ICU 17:48 → M PCU 01-21 11:47 → M MSPAV 01-29 13:12
PROVIDERS: ADMIT Internal Medicine Pulmonary Disease; ATTEND Internal Medicine
PROC: 06HN33Z Insertion of Infusion Device into Left Femoral Vein, Percutaneous Approach (ICD-10-PCS; principal; 2024-01-20)
PROC: B246ZZZ Ultrasonography of Right and Left Heart (ICD-10-PCS; 2024-01-20)
PROC: 5A1D70Z Performance of Urinary Filtration, Intermittent, Less than 6 Hours Per Day (ICD-10-PCS; 2024-01-20)
DX: A41.9 Sepsis, unspecified organism (principal); G93.41 Metabolic encephalopathy; I50.23 Acute on chronic systolic (congestive) heart failure; J15.69 Pneumonia due to other Gram-negative bacteria; I21.A1 Myocardial infarction type 2; N17.0 Acute kidney failure with tubular necrosis; N18.4 Chronic kidney disease, stage 4 (severe); J90 Pleural effusion, not elsewhere classified; J96.12 Chronic respiratory failure with hypercapnia; J96.11 Chronic respiratory failure with hypoxia; I13.0 Hypertensive heart and chronic kidney disease with heart failure and stage 1 through stage 4 chronic kidney disease, or unspecified chronic kidney disease; E87.4 Mixed disorder of acid-base balance; R65.20 Severe sepsis without septic shock; E78.5 Hyperlipidemia, unspecified; K21.9 Gastro-esophageal reflux disease without esophagitis; E11.22 Type 2 diabetes mellitus with diabetic chronic kidney disease; M10.9 Gout, unspecified; D53.9 Nutritional anemia, unspecified; Z79.4 Long term (current) use of insulin; Z79.899 Other long term (current) drug therapy; Z11.52 Encounter for screening for COVID-19; I48.0 Paroxysmal atrial fibrillation; R13.12 Dysphagia, oropharyngeal phase; E87.5 Hyperkalemia

== ENCOUNTER → 2024-01-18 | Outpatient (REF) | payer MEDICARE, OTHER ==
[~2024-01-18] MED LIST changes: -TOPR25TA PO; -TORS100T PO
[2024-01-18 08:02] LABS: BASO % 0.1 % (0.0-1.0); HEMATOCRIT 31.9 % (42.0-52.0); HEMOGLOBIN 8.9 g/dl (13.5-17.5); LYMPH # 0.3 10^3/uL (1.5-5.0); LYMPH % 1.6 % (24.0-44.0); MEAN CORPUSCULAR HEMOGLOBIN 27.1 pg (27.0-33.0); MEAN CORPUSCULAR HGB CONC 27.9 g/dl (32.0-36.5); MONO # 2.5 10^3/uL (0.0-0.8); MONO % 12.5 % (2.0-8.0); NEUTROPHILS # 16.9 10^3/uL (1.5-8.5); PLATELET COUNT, AUTOMATED 325 10^3/uL (150-450); RED BLOOD COUNT 3.29 10^6/uL (4.30-6.10); WHITE BLOOD COUNT 19.9 10^3/uL (4.0-10.0)
[2024-01-18 08:27] LABS: CALCIUM LEVEL 8.3 MG/DL (8.3-10.6); CREATININE FOR GFR 2.46 MG/DL (0.70-1.30); GLOMERULAR FILTRATION RATE 26.6 (>35); POTASSIUM SERUM 4.3 MMOL/L (3.5-5.1)
== END ==
LOC: SKLAB4 07:25
PROVIDERS: ATTEND Internal Medicine
DX: R06.02 Shortness of breath (principal); R06.2 Wheezing; J90 Pleural effusion, not elsewhere classified

== ENCOUNTER → 2024-02-02 | Outpatient (REF) ==
[~2024-02-02] MED LIST changes: +TOPR25TA PO; +TORS100T PO
== END ==
PROVIDERS: ATTEND Internal Medicine
DX: J90 Pleural effusion, not elsewhere classified (principal); I50.9 Heart failure, unspecified

== ENCOUNTER → 2024-02-05 | Outpatient (REF) ==
[~2024-02-05] MED LIST changes: +ALBU2.5V10 INH; +ALLO10TA PO; +BENZ-18 PO; +INSU100I16 SQ; +LACT20EL PO; +METO1TAB32 PO; +MILKSUS3 PO; +MUCI600T31 PO; +SPIR-10 PO
[2024-02-05 12:30] LABS: HEMATOCRIT 34.5 % (42.0-52.0); HEMOGLOBIN 9.6 g/dl (13.5-17.5); MEAN CORPUSCULAR HEMOGLOBIN 26.7 pg (27.0-33.0); MEAN CORPUSCULAR HGB CONC 27.8 g/dl (32.0-36.5); MEAN CORPUSCULAR VOLUME 96.1 fl (80.0-96.0); PLATELET COUNT, AUTOMATED 308 10^3/uL (150-450); RED BLOOD COUNT 3.59 10^6/uL (4.30-6.10)
[2024-02-05 12:57] LABS: CALCIUM LEVEL 8.4 MG/DL (8.3-10.6); CREATININE FOR GFR 2.77 MG/DL (0.70-1.30); GLOMERULAR FILTRATION RATE 23.2 (>35); POTASSIUM SERUM 4.7 MMOL/L (3.5-5.1)
== END ==
PROVIDERS: ATTEND Internal Medicine
DX: I50.9 Heart failure, unspecified (principal)

== ENCOUNTER → 2024-02-06 | Outpatient (REF) ==
[~2024-02-06] MED LIST changes: -ALBU2.5V10 INH; -ALLO10TA PO; -BENZ-18 PO; -INSU100I16 SQ; -LACT20EL PO; -METO1TAB32 PO; -MILKSUS3 PO; -MUCI600T31 PO; -SPIR-10 PO
== END ==
PROVIDERS: ATTEND Internal Medicine
DX: R91.8 Other nonspecific abnormal finding of lung field (principal); J90 Pleural effusion, not elsewhere classified

== ENCOUNTER 2024-02-08 19:14 | Inpatient (IN) | payer MEDICARE, OTHER ==
[~2024-02-08] VITALS: Ht 177.8 cm; Wt 72.8 kg
[~2024-02-08 19:14] MED LIST changes: +ALBU1.25 INH; -ALBU1.25 NEB
[2024-02-08 19:57] LABS: BASO # 0.1 10^3/uL (0.0-0.2); BASO % 0.8 % (0.0-1.0); EOS % 0.5 % (0.0-3.0); HEMATOCRIT 35.3 % (42.0-52.0); HEMOGLOBIN 9.6 g/dl (13.5-17.5); LYMPH # 0.7 10^3/uL (1.5-5.0); LYMPH % 11.9 % (24.0-44.0); MEAN CORPUSCULAR HEMOGLOBIN 26.4 pg (27.0-33.0); MEAN CORPUSCULAR HGB CONC 27.2 g/dl (32.0-36.5); MONO # 0.9 10^3/uL (0.0-0.8); NEUTROPHILS # 4.4 10^3/uL (1.5-8.5); NEUTROPHILS % 71.1 % (36.0-66.0); PLATELET COUNT, AUTOMATED 308 10^3/uL (150-450); RED BLOOD COUNT 3.64 10^6/uL (4.30-6.10); WHITE BLOOD COUNT 6.1 10^3/uL (4.0-10.0)
[2024-02-08 20:17] LABS: ALBUMIN 2.9 G/DL (3.2-5.2); BILIRUBIN,DIRECT 0.7 MG/DL (<0.4); BILIRUBIN,TOTAL 1.3 MG/DL (0.3-1.2); CALCIUM LEVEL 8.3 MG/DL (8.3-10.6); POTASSIUM SERUM 5.3 MMOL/L (3.5-5.1); TOTAL PROTEIN 6.5 G/DL (5.7-8.2)
[2024-02-08] MEDS: NS 1,000 ML IV ONE (20:56)
[2024-02-08 21:35] VITALS: BP 115/56; TEMP 97; O2SAT 98
[2024-02-08 21:50] VITALS: BP 94/55; TEMP 96.5; O2SAT 97
[2024-02-08 22:50] VITALS: BP 100/54; TEMP 96.4; O2SAT 98
[2024-02-08 23:50] VITALS: BP 104/53; TEMP 97; O2SAT 98
[2024-02-09] VITALS (13 sets, daily range): BP systolic 90–112; BP diastolic 50–59; TEMP 95.1–97.6; O2SAT 89–100
[2024-02-09 00:28] LABS: HEMATOCRIT 26.9 % (42.0-52.0); HEMOGLOBIN 7.7 g/dl (13.5-17.5); MEAN CORPUSCULAR HEMOGLOBIN 27.3 pg (27.0-33.0); MEAN CORPUSCULAR HGB CONC 28.6 g/dl (32.0-36.5); MEAN CORPUSCULAR VOLUME 95.4 fl (80.0-96.0); PLATELET COUNT, AUTOMATED 244 10^3/uL (150-450); RED BLOOD COUNT 2.82 10^6/uL (4.30-6.10); WHITE BLOOD COUNT 6.4 10^3/uL (4.0-10.0)
[2024-02-09] MEDS ORDERED: DEXTROSE 50% 50ML SYRINGE IV PRN (01:20)
[2024-02-09] MEDS ORDERED: GLUCOSE 4 GM CHEW PO PRN (01:20)
[2024-02-09] MEDS ORDERED: GLUCAGON INJ 1MG VIAL SC PRN (01:20)
[2024-02-09 01:48] LABS: INR 1.26; PARTIAL THROMBOPLASTIN TIME 42.6 SECONDS (24.8-34.2); PROTHROMBIN TIME 15.4 SECONDS (12.5-14.5)
[2024-02-09] MEDS: PANTOPRAZOLE 40MG VIAL IV ONE (03:36)
[2024-02-09 05:54] LABS: BASO # 0.1 10^3/uL (0.0-0.2); BASO % 0.6 % (0.0-1.0); EOS % 0.2 % (0.0-3.0); HEMATOCRIT 28.2 % (42.0-52.0); HEMOGLOBIN 8.5 g/dl (13.5-17.5); LYMPH # 1.2 10^3/uL (1.5-5.0); LYMPH % 13.2 % (24.0-44.0); MEAN CORPUSCULAR HEMOGLOBIN 28.2 pg (27.0-33.0); MEAN CORPUSCULAR HGB CONC 30.1 g/dl (32.0-36.5); MEAN CORPUSCULAR VOLUME 93.7 fl (80.0-96.0); MONO # 1.8 10^3/uL (0.0-0.8); MONO % 20.9 % (2.0-8.0); NEUTROPHILS # 5.7 10^3/uL (1.5-8.5); NEUTROPHILS % 64.3 % (36.0-66.0); PLATELET COUNT, AUTOMATED 229 10^3/uL (150-450); RED BLOOD COUNT 3.01 10^6/uL (4.30-6.10); WHITE BLOOD COUNT 8.8 10^3/uL (4.0-10.0)
[2024-02-09] MEDS ORDERED: IPRATROPIUM 0.5MG/ALBUTEROL 2.5MG INH SOL UD 3ML (DUONEB) NEB PRN (07:05)
[2024-02-09] MEDS: INSULIN LISPRO (NovoLOG) PER UNIT SC SCH (07:30)
[2024-02-09] MEDS ORDERED: SPIR-10 PO (07:32)
[2024-02-09] MEDS ORDERED: LANTINJ4 SC (07:32)
[2024-02-09] MEDS ORDERED: ALBU2.5V10 INH (07:32)
[2024-02-09] MEDS ORDERED: MILKSUS3 PO (07:32)
[2024-02-09] MEDS ORDERED: TORS100T PO (07:32)
[2024-02-09] MEDS ORDERED: METO1TAB32 PO (07:32)
[2024-02-09] MEDS ORDERED: INSU100I16 SQ (07:32)
[2024-02-09] MEDS ORDERED: HOME MED LIST COMPLETE! XX SCH (07:35)
[2024-02-09] MEDS: LACTULOSE 20GM/30ML SYRUP UDC PO SCH ×2 (08:36→09:07)
[2024-02-09] MEDS: METOPROLOL SUCC *XL* 12.5MG PER 1/2 TAB (TopROL *XL*) PO SCH (08:37)
[2024-02-09 08:40] LABS: ALBUMIN 2.1 G/DL (3.2-5.2); ALKALINE PHOSPHATASE 89 U/L (46-116); ALT/SGPT < 9 U/L (7.0-40); AST/SGOT 26 U/L (<34); BILIRUBIN,TOTAL 2.3 MG/DL (0.3-1.2); BLOOD UREA NITROGEN 80 MG/DL (9-23); CALCIUM LEVEL 7.8 MG/DL (8.3-10.6); CARBON DIOXIDE LEVEL 35 MMOL/L (20-31); CHLORIDE LEVEL 101 MMOL/L (98-107); GLUCOSE, FASTING 52 MG/DL (74-106); POTASSIUM SERUM 5.1 MMOL/L (3.5-5.1); SODIUM LEVEL 141 MMOL/L (136-145); TOTAL PROTEIN 4.7 G/DL (5.7-8.2)
[2024-02-09] MEDS: EZETIMIBE 10MG TABLET (ZETIA) PO SCH (09:07)
[2024-02-09] MEDS: ACETAMINOPHEN 325 MG TAB PO SCH (09:08)
[2024-02-09] MEDS: PANTOPRAZOLE 40MG TAB (PROTONIX) PO SCH (09:08)
[2024-02-09] MEDS: CALCITRIOL 0.25 MCG CAP (S0169) PO SCH (09:09)
[2024-02-09] MEDS: allopurinoL 100 MG TAB PO SCH (09:09)
[2024-02-09 11:34] LABS: HEMATOCRIT 27.1 % (42.0-52.0); HEMOGLOBIN 8.1 g/dl (13.5-17.5)
[2024-02-09] MEDS: IPRATROPIUM 0.5MG/ALBUTEROL 2.5MG INH SOL UD 3ML (DUONEB) NEB SCH (12:28)
[2024-02-09 12:38] LABS: GLOMERULAR FILTRATION RATE 23.9 (>35)
[2024-02-09 12:41] LABS: CREATININE FOR GFR 2.76 MG/DL (0.70-1.30); GLOMERULAR FILTRATION RATE 23.3 (>35)
[2024-02-09 17:15] LABS: HEMATOCRIT 27.3 % (42.0-52.0); HEMOGLOBIN 8.2 g/dl (13.5-17.5)
[2024-02-09] MEDS: LATANOPROST 0.005% OPHTH SOLN 2.5 ML OU SCH (20:51)
[2024-02-09 23:05] LABS: HEMOGLOBIN 7.5 g/dl (13.5-17.5)
[2024-02-10] VITALS (9 sets, daily range): BP systolic 100–116; BP diastolic 51–63; TEMP 96.8–97.9; O2SAT 94–99
[2024-02-10] MEDS ORDERED: diphenhydrAMINE 25MG CAP PO ONE (02:00)
[2024-02-10 05:24] LABS: HEMATOCRIT 25.3 % (42.0-52.0); HEMOGLOBIN 7.6 g/dl (13.5-17.5); MEAN CORPUSCULAR HEMOGLOBIN 27.9 pg (27.0-33.0); PLATELET COUNT, AUTOMATED 250 10^3/uL (150-450); RED BLOOD COUNT 2.72 10^6/uL (4.30-6.10); WHITE BLOOD COUNT 7.2 10^3/uL (4.0-10.0)
[2024-02-10 05:49] LABS: CALCIUM LEVEL 8.3 MG/DL (8.3-10.6); CREATININE FOR GFR 2.76 MG/DL (0.70-1.30); GLOMERULAR FILTRATION RATE 23.3 (>35); MAGNESIUM LEVEL 2.1 MG/DL (1.8-2.4); POTASSIUM SERUM 4.8 MMOL/L (3.5-5.1)
[2024-02-10] MEDS: PREPARATION H SUPP (HEMORRHOID) PR SCH (09:47)
[2024-02-10] MEDS: TORSEMIDE (DEMADEX) 50 MG PER 1/2 TAB PO SCH (09:59)
[2024-02-10] MEDS: SPIRONOLACTONE 12.5MG PER 1/2 TABLET PO SCH (09:59)
[2024-02-10 11:28] LABS: HEMATOCRIT 30.3 % (42.0-52.0); HEMOGLOBIN 9.1 g/dl (13.5-17.5)
[2024-02-10] MEDS: diphenhydrAMINE CREAM 30GM TOP PRN (16:03)
[2024-02-10 17:34] LABS: HEMATOCRIT 26.7 % (42.0-52.0); HEMOGLOBIN 8.2 g/dl (13.5-17.5)
[2024-02-10 23:17] LABS: HEMOGLOBIN 7.8 g/dl (13.5-17.5)
[2024-02-11] VITALS (8 sets, daily range): BP systolic 102–127; BP diastolic 54–58; TEMP 97–98.6; O2SAT 96–99
[2024-02-11 06:00] LABS: BASO % 0.6 % (0.0-1.0); EOS % 0.5 % (0.0-3.0); HEMATOCRIT 25.8 % (42.0-52.0); HEMOGLOBIN 7.9 g/dl (13.5-17.5); LYMPH # 0.9 10^3/uL (1.5-5.0); LYMPH % 13.3 % (24.0-44.0); MEAN CORPUSCULAR HEMOGLOBIN 28.5 pg (27.0-33.0); MEAN CORPUSCULAR HGB CONC 30.6 g/dl (32.0-36.5); MEAN CORPUSCULAR VOLUME 93.1 fl (80.0-96.0); MONO # 1.1 10^3/uL (0.0-0.8); MONO % 17.6 % (2.0-8.0); NEUTROPHILS # 4.4 10^3/uL (1.5-8.5); NEUTROPHILS % 67.4 % (36.0-66.0); PLATELET COUNT, AUTOMATED 260 10^3/uL (150-450); RED BLOOD COUNT 2.77 10^6/uL (4.30-6.10); WHITE BLOOD COUNT 6.5 10^3/uL (4.0-10.0)
[2024-02-11 06:21] LABS: ALBUMIN 2.5 G/DL (3.2-5.2); ALKALINE PHOSPHATASE 106 U/L (46-116); ALT/SGPT < 9 U/L (7.0-40); AST/SGOT 29 U/L (<34); BILIRUBIN,DIRECT 0.7 MG/DL (<0.4); BILIRUBIN,TOTAL 1.2 MG/DL (0.3-1.2); BLOOD UREA NITROGEN 72 MG/DL (9-23); CALCIUM LEVEL 7.9 MG/DL (8.3-10.6); CARBON DIOXIDE LEVEL 30 MMOL/L (20-31); CHLORIDE LEVEL 99 MMOL/L (98-107); CREATININE FOR GFR 2.63 MG/DL (0.70-1.30); GLOMERULAR FILTRATION RATE 24.6 (>35); GLUCOSE, FASTING 190 MG/DL (74-106); MAGNESIUM LEVEL 2.1 MG/DL (1.8-2.4); POTASSIUM SERUM 4.8 MMOL/L (3.5-5.1); SODIUM LEVEL 137 MMOL/L (136-145); TOTAL PROTEIN 5.4 G/DL (5.7-8.2)
[2024-02-11] MEDS: BENZONATATE 100MG CAPSULE PO SCH (08:24)
[2024-02-11] MEDS: guaiFENesin ER TABLET 600 MG TAB PO SCH (08:24)
[2024-02-11 08:49] LABS: PROCALCITONIN 0.29 ng/ml
[2024-02-11 10:57] LABS: HEMATOCRIT 24.9 % (42.0-52.0); HEMOGLOBIN 7.5 g/dl (13.5-17.5)
[2024-02-11] MEDS: METOPROLOL SUCC *XL* 12.5MG PER 1/2 TAB (TopROL *XL*) PO ONE (13:03)
[2024-02-11] MEDS: LACTULOSE 20GM/30ML SYRUP UDC PO SCH (15:19)
[2024-02-11] MEDS: TORSEMIDE (DEMADEX) 50 MG PER 1/2 TAB PO SCH (15:28)
[2024-02-11 17:19] LABS: HEMATOCRIT 26.4 % (42.0-52.0)
[2024-02-11] MEDS: RAMELTEON 8 MG TAB (ROZEREM) PO SCH (20:31)
[2024-02-11 23:20] LABS: HEMATOCRIT 24.9 % (42.0-52.0); HEMOGLOBIN 7.7 g/dl (13.5-17.5)
[2024-02-12 03:53] VITALS: BP 122/52; TEMP 97.6; O2SAT 97
[2024-02-12 06:09] LABS: BASO % 0.4 % (0.0-1.0); EOS % 0.1 % (0.0-3.0); HEMATOCRIT 26.1 % (42.0-52.0); HEMOGLOBIN 7.8 g/dl (13.5-17.5); LYMPH # 0.8 10^3/uL (1.5-5.0); LYMPH % 10.8 % (24.0-44.0); MEAN CORPUSCULAR HEMOGLOBIN 28.4 pg (27.0-33.0); MEAN CORPUSCULAR HGB CONC 29.9 g/dl (32.0-36.5); MEAN CORPUSCULAR VOLUME 94.9 fl (80.0-96.0); MONO # 1.1 10^3/uL (0.0-0.8); MONO % 15.2 % (2.0-8.0); NEUTROPHILS # 5.5 10^3/uL (1.5-8.5); PLATELET COUNT, AUTOMATED 230 10^3/uL (150-450); RED BLOOD COUNT 2.75 10^6/uL (4.30-6.10); WHITE BLOOD COUNT 7.5 10^3/uL (4.0-10.0)
[2024-02-12 06:41] LABS: ALBUMIN 2.6 G/DL (3.2-5.2); BILIRUBIN,DIRECT 0.7 MG/DL (<0.4); BILIRUBIN,TOTAL 1.3 MG/DL (0.3-1.2); CALCIUM LEVEL 8.2 MG/DL (8.3-10.6); CREATININE FOR GFR 2.74 MG/DL (0.70-1.30); GLOMERULAR FILTRATION RATE 23.5 (>35); MAGNESIUM LEVEL 2.1 MG/DL (1.8-2.4); POTASSIUM SERUM 4.6 MMOL/L (3.5-5.1); TOTAL PROTEIN 5.6 G/DL (5.7-8.2)
[2024-02-12 08:00] VITALS: BP 119/62; TEMP 97.2; O2SAT 95
[2024-02-12 08:06] VITALS: BP 119/62
[2024-02-12] MEDS ORDERED: LACT20EL PO (10:56)
[2024-02-12] MEDS ORDERED: BENZ-18 PO (10:56)
[2024-02-12] MEDS ORDERED: MUCI600T31 PO (10:58)
[2024-02-12] MEDS ORDERED: ALLO10TA PO (11:07)
== END 2024-02-12 12:37 | DRG 378 ==
LOC: M ED 19:14 → M ED INP 02-09 00:48 → M PCU 02-09 02:50
PROVIDERS: ADMIT Preventive Medicine Undersea and Hyperbaric Medicine; ATTEND Internal Medicine
PROC: 30233N1 Transfusion of Nonautologous Red Blood Cells into Peripheral Vein, Percutaneous Approach (ICD-10-PCS; principal; 2024-02-09)
DX: K62.5 Hemorrhage of anus and rectum (principal); J90 Pleural effusion, not elsewhere classified; D59.19 Other autoimmune hemolytic anemia; I50.22 Chronic systolic (congestive) heart failure; D62 Acute posthemorrhagic anemia; N18.30 Chronic kidney disease, stage 3 unspecified; E11.22 Type 2 diabetes mellitus with diabetic chronic kidney disease; I48.0 Paroxysmal atrial fibrillation; E78.5 Hyperlipidemia, unspecified; K21.9 Gastro-esophageal reflux disease without esophagitis; K56.41 Fecal impaction; H90.3 Sensorineural hearing loss, bilateral; K52.89 Other specified noninfective gastroenteritis and colitis; R13.10 Dysphagia, unspecified; K57.90 Diverticulosis of intestine, part unspecified, without perforation or abscess without bleeding; D47.2 Monoclonal gammopathy; Z79.4 Long term (current) use of insulin; Z79.899 Other long term (current) drug therapy; Z88.8 Allergy status to other drugs, medicaments and biological substances; Z96.642 Presence of left artificial hip joint

== ENCOUNTER → 2024-02-09 | Outpatient (REF) ==
[~2024-02-09] MED LIST changes: -ALBU1.25 INH; +ALBU1.25 NEB; +ALBU2.5V10 INH; +ALLO10TA PO; +BENZ-18 PO; +INSU100I16 SQ; +LACT20EL PO; +METO1TAB32 PO; +MILKSUS3 PO; +MUCI600T31 PO; +SPIR-10 PO
== END ==
PROVIDERS: ATTEND Internal Medicine
DX: N18.6 End stage renal disease (principal); Z53.8 Procedure and treatment not carried out for other reasons

== ENCOUNTER → 2024-02-14 | Outpatient (REF) ==
[~2024-02-14] MED LIST changes: +ACET-683 PO; +ALBU1.25 INH; -ALBU1.25 NEB; +ALLO100T PO; +FERR1TAB8 PO; +INSU100V3 SC; +SUCR1TA PO
[2024-02-14 10:06] LABS: HEMATOCRIT 28.2 % (42.0-52.0); HEMOGLOBIN 8.4 g/dl (13.5-17.5); MEAN CORPUSCULAR HEMOGLOBIN 29.3 pg (27.0-33.0); MEAN CORPUSCULAR HGB CONC 29.8 g/dl (32.0-36.5); MEAN CORPUSCULAR VOLUME 98.3 fl (80.0-96.0); PLATELET COUNT, AUTOMATED 230 10^3/uL (150-450); RED BLOOD COUNT 2.87 10^6/uL (4.30-6.10); WHITE BLOOD COUNT 6.1 10^3/uL (4.0-10.0)
[2024-02-14 10:30] LABS: URIC ACID 5.8 MG/DL (3.7-9.2)
[2024-02-14 10:33] LABS: CALCIUM LEVEL 8.6 MG/DL (8.3-10.6); CREATININE FOR GFR 2.59 MG/DL (0.70-1.30); POTASSIUM SERUM 4.3 MMOL/L (3.5-5.1)
== END ==
PROVIDERS: ATTEND Internal Medicine
DX: K92.2 Gastrointestinal hemorrhage, unspecified (principal)

== ENCOUNTER → 2024-02-15 | Outpatient (REF) | PROVIDERS: ATTEND Internal Medicine | DX: D64.9 Anemia, unspecified (principal); Z53.8 Procedure and treatment not carried out for other reasons ==

== ENCOUNTER 2024-02-17 14:03 | Inpatient (IN) | payer OTHER, MEDICARE ==
[~2024-02-17] VITALS: Ht 177.8 cm; Wt 70.6 kg
[~2024-02-17 14:03] MED LIST changes: -ACET-683 PO; -ALLO100T PO; -FERR1TAB8 PO; -INSU100V3 SC; -SUCR1TA PO
[2024-02-17 14:29] LABS: BASO % 0.3 % (0.0-1.0); EOS # 0.1 10^3/uL (0.0-0.5); EOS % 0.9 % (0.0-3.0); HEMATOCRIT 29.2 % (42.0-52.0); HEMOGLOBIN 8.6 g/dl (13.5-17.5); LYMPH % 15.4 % (24.0-44.0); MEAN CORPUSCULAR HEMOGLOBIN 28.7 pg (27.0-33.0); MEAN CORPUSCULAR HGB CONC 29.5 g/dl (32.0-36.5); MEAN CORPUSCULAR VOLUME 97.3 fl (80.0-96.0); MONO # 1.1 10^3/uL (0.0-0.8); MONO % 17.2 % (2.0-8.0); NEUTROPHILS # 4.4 10^3/uL (1.5-8.5); NEUTROPHILS % 65.7 % (36.0-66.0); PLATELET COUNT, AUTOMATED 175 10^3/uL (150-450); WHITE BLOOD COUNT 6.6 10^3/uL (4.0-10.0)
[2024-02-17 15:40] LABS: CALCIUM LEVEL 8.2 MG/DL (8.3-10.6); CREATININE FOR GFR 2.18 MG/DL (0.70-1.30); GLOMERULAR FILTRATION RATE 30.5 (>35); POTASSIUM SERUM 4.4 MMOL/L (3.5-5.1)
[2024-02-17] MEDS ORDERED: LACT20EL PO (16:11)
[2024-02-17] MEDS ORDERED: ALLO100T PO (16:11)
[2024-02-17] MEDS ORDERED: SUCR1TA PO (16:11)
[2024-02-17] MEDS ORDERED: FERR1TAB8 PO (16:11)
[2024-02-17] MEDS ORDERED: ACET-683 PO (16:11)
[2024-02-17] MEDS ORDERED: MUCI600T31 PO (16:11)
[2024-02-17] MEDS ORDERED: BENZ-18 PO (16:11)
[2024-02-17] MEDS ORDERED: INSU100V3 SC (16:11)
[2024-02-17] MEDS ORDERED: HOME MED LIST COMPLETE! XX SCH (16:25)
[2024-02-17] MEDS ORDERED: MOM 30ML SUSPENSION UDC PO PRN (17:30)
[2024-02-17] MEDS ORDERED: MAALOX 30 ML SUSP *UDC PO PRN (17:30)
[2024-02-17] MEDS: SUCRALFATE SUSP 1GM/10ML UD PO SCH (18:06)
[2024-02-17 20:23] LABS: HEMATOCRIT 26.7 % (42.0-52.0)
[2024-02-17 20:44] VITALS: BP 133/64; TEMP 96.9; O2SAT 92
[2024-02-17] MEDS: PANTOPRAZOLE 40MG VIAL IV SCH (21:07)
[2024-02-18] VITALS (10 sets, daily range): BP systolic 102–157; BP diastolic 59–80; TEMP 97.2–97.8; O2SAT 90–100
[2024-02-18 00:16] LABS: HEMATOCRIT 24.8 % (42.0-52.0); HEMOGLOBIN 7.5 g/dl (13.5-17.5)
[2024-02-18 00:22] LABS: POTASSIUM SERUM 4.6 MMOL/L (3.5-5.1)
[2024-02-18 06:46] LABS: BASO % 0.6 % (0.0-1.0); EOS # 0.1 10^3/uL (0.0-0.5); HEMATOCRIT 25.3 % (42.0-52.0); HEMOGLOBIN 7.5 g/dl (13.5-17.5); LYMPH # 1.1 10^3/uL (1.5-5.0); LYMPH % 21.3 % (24.0-44.0); MEAN CORPUSCULAR HEMOGLOBIN 28.5 pg (27.0-33.0); MEAN CORPUSCULAR HGB CONC 29.6 g/dl (32.0-36.5); MEAN CORPUSCULAR VOLUME 96.2 fl (80.0-96.0); MONO % 20.7 % (2.0-8.0); NEUTROPHILS # 2.7 10^3/uL (1.5-8.5); NEUTROPHILS % 55.8 % (36.0-66.0); PLATELET COUNT, AUTOMATED 141 10^3/uL (150-450); RED BLOOD COUNT 2.63 10^6/uL (4.30-6.10); WHITE BLOOD COUNT 4.9 10^3/uL (4.0-10.0)
[2024-02-18 07:06] LABS: CREATININE FOR GFR 2.2 MG/DL (0.70-1.30); GLOMERULAR FILTRATION RATE 30.2 (>35); POTASSIUM SERUM 4.7 MMOL/L (3.5-5.1)
[2024-02-18] MEDS ORDERED: GLUCOSE 4 GM CHEW PO PRN (09:00)
[2024-02-18] MEDS ORDERED: GLUCAGON INJ 1MG VIAL SC PRN (09:00)
[2024-02-18] MEDS ORDERED: DEXTROSE 50% 50ML SYRINGE IV PRN (09:00)
[2024-02-18] MEDS: INSULIN LISPRO (NovoLOG) PER UNIT SC SCH ×2 (12:11→20:16)
[2024-02-18] MEDS ORDERED: NS 1,000 ML IV ONE (19:05)
[2024-02-19 03:33] VITALS: BP 112/67; TEMP 97.1; O2SAT 98
[2024-02-19 06:02] LABS: CALCIUM LEVEL 7.9 MG/DL (8.3-10.6); CREATININE FOR GFR 2.18 MG/DL (0.70-1.30); GLOMERULAR FILTRATION RATE 30.5 (>35)
[2024-02-19 06:07] LABS: BASO % 0.6 % (0.0-1.0); EOS % 0.2 % (0.0-3.0); HEMATOCRIT 27.2 % (42.0-52.0); HEMOGLOBIN 7.9 g/dl (13.5-17.5); LYMPH # 1.3 10^3/uL (1.5-5.0); LYMPH % 24.2 % (24.0-44.0); MEAN CORPUSCULAR HEMOGLOBIN 28.5 pg (27.0-33.0); MEAN CORPUSCULAR VOLUME 98.2 fl (80.0-96.0); MONO # 1.1 10^3/uL (0.0-0.8); MONO % 20.9 % (2.0-8.0); NEUTROPHILS # 2.9 10^3/uL (1.5-8.5); PLATELET COUNT, AUTOMATED 141 10^3/uL (150-450); RED BLOOD COUNT 2.77 10^6/uL (4.30-6.10); WHITE BLOOD COUNT 5.4 10^3/uL (4.0-10.0)
[2024-02-19 08:01] VITALS: BP 110/61; TEMP 97.3; O2SAT 99
== END 2024-02-19 11:30 | DRG 378 ==
LOC: EDBD 14:03 → M ED 14:03 → M ED INP 17:16 → M PCU 20:36
PROVIDERS: ADMIT Student in an Organized Health Care Education/Training Program; ATTEND Student in an Organized Health Care Education/Training Program
DX: K92.2 Gastrointestinal hemorrhage, unspecified (principal); I50.22 Chronic systolic (congestive) heart failure; J90 Pleural effusion, not elsewhere classified; J98.11 Atelectasis; I48.20 Chronic atrial fibrillation, unspecified; J96.11 Chronic respiratory failure with hypoxia; J96.12 Chronic respiratory failure with hypercapnia; L97.429 Non-pressure chronic ulcer of left heel and midfoot with unspecified severity; D69.6 Thrombocytopenia, unspecified; D47.2 Monoclonal gammopathy; N18.30 Chronic kidney disease, stage 3 unspecified; H90.3 Sensorineural hearing loss, bilateral; E11.22 Type 2 diabetes mellitus with diabetic chronic kidney disease; K21.9 Gastro-esophageal reflux disease without esophagitis; Z79.4 Long term (current) use of insulin; Z79.899 Other long term (current) drug therapy; Z88.8 Allergy status to other drugs, medicaments and biological substances; D50.0 Iron deficiency anemia secondary to blood loss (chronic)

== ENCOUNTER → 2024-02-19 | Outpatient (REF) ==
[~2024-02-19] MED LIST changes: +ACET-683 PO; +ALLO100T PO; +FERR1TAB8 PO; +INSU100V3 SC; +SUCR1TA PO
== END ==
PROVIDERS: ATTEND Internal Medicine
DX: K92.2 Gastrointestinal hemorrhage, unspecified (principal); Z53.8 Procedure and treatment not carried out for other reasons

== ENCOUNTER 2024-02-20 22:58 | Emergency (ER) | payer OTHER, MEDICARE ==
[~2024-02-20] VITALS: Ht 172.7 cm; Wt 73.3 kg
[2024-02-20] MEDS: NS 1,000 ML IV ONE (23:40)
[2024-02-21] VITALS (10 sets, daily range): BP systolic 87–120; BP diastolic 49–58; TEMP 96.4–97.9; O2SAT 98–100
[2024-02-21 00:13] LABS: BASO % 0.5 % (0.0-1.0); EOS % 0.5 % (0.0-3.0); HEMATOCRIT 23.1 % (42.0-52.0); LYMPH # 1.4 10^3/uL (1.5-5.0); LYMPH % 22.2 % (24.0-44.0); MEAN CORPUSCULAR HEMOGLOBIN 29.1 pg (27.0-33.0); MEAN CORPUSCULAR HGB CONC 29.4 g/dl (32.0-36.5); MEAN CORPUSCULAR VOLUME 98.7 fl (80.0-96.0); MONO # 1.3 10^3/uL (0.0-0.8); MONO % 19.8 % (2.0-8.0); NEUTROPHILS # 3.6 10^3/uL (1.5-8.5); NEUTROPHILS % 56.5 % (36.0-66.0); PLATELET COUNT, AUTOMATED 144 10^3/uL (150-450); RED BLOOD COUNT 2.34 10^6/uL (4.30-6.10); WHITE BLOOD COUNT 6.4 10^3/uL (4.0-10.0)
[2024-02-21] MEDS: PANTOPRAZOLE 40MG VIAL IV ONE (00:13)
[2024-02-21 00:15] LABS: HEMOGLOBIN 6.8 g/dl (13.5-17.5)
[2024-02-21] MEDS: NS 1,000 ML IV ONE (00:18)
[2024-02-21 00:22] LABS: BILIRUBIN,DIRECT 0.5 MG/DL (<0.4); CALCIUM LEVEL 7.7 MG/DL (8.3-10.6); CK-MB VALUE MASS 3.4 NG/ML (<3.6); CREATININE FOR GFR 1.99 MG/DL (0.70-1.30); GLOMERULAR FILTRATION RATE 33.9 (>35); POTASSIUM SERUM 4.5 MMOL/L (3.5-5.1); TOTAL PROTEIN 5.1 G/DL (5.7-8.2)
[2024-02-21 04:04] LABS: CK-MB VALUE MASS 3.6 NG/ML (<3.6); MB/CK RELATIVE INDEX 11.25 (< OR =4)
[2024-02-21 05:44] LABS: HEMATOCRIT 27.1 % (42.0-52.0); HEMOGLOBIN 8.4 g/dl (13.5-17.5)
== END 2024-02-21 07:47 | disposition short-term general hospital (02) ==
LOC: M ED 22:58
DX: K92.2 Gastrointestinal hemorrhage, unspecified (principal); D62 Acute posthemorrhagic anemia; I48.91 Unspecified atrial fibrillation; I25.2 Old myocardial infarction; Z88.8 Allergy status to other drugs, medicaments and biological substances; Z79.51 Long term (current) use of inhaled steroids; Z79.4 Long term (current) use of insulin; Z79.899 Other long term (current) drug therapy
CPT/HCPCS: 36430; 71250; 74176; 80047; 80048; 80076; 82550; 82553; 83605; 83690; 84484; 85014; 85018; 85025; 86850; 86900; 86901; 86920; 93005; 93041; 96361; 96374; 99285; C9113; P9016

== ENCOUNTER → 2024-03-05 | Outpatient (REF) | payer MEDICARE, OTHER | LOC: M SOG 07:57 → EDSTATUS 09:46 | PROVIDERS: ATTEND Physician Assistant | DX: M25.552 Pain in left hip (principal); M79.605 Pain in left leg ==